=== PATIENT | female | born 1970 | race Hispanic/Latino ===

== ENCOUNTER 2018-10-29 08:55 | Day surgery (SDC) | payer OTHER ==
[2018-10-29] VITALS (7 sets, daily range): BP systolic 92–128; BP diastolic 47–78
[~2018-10-29] VITALS: Ht 162.6 cm; Wt 92.3 kg
[~2018-10-29 08:55] MED LIST: SODIUM CHLORIDE 0.9% 1000ML 1,000 ML IV ONE
[2018-10-29] MEDS ORDERED: PROPOFOL 10 MG/ML 20ML VIAL IV ONE (12:03)
== END 2018-10-29 13:17 | disposition home or self-care (01) ==
LOC: DAH 08:55 → ENDO 08:55
PROVIDERS: ATTEND Internal Medicine
DX: Z12.11 Encounter for screening for malignant neoplasm of colon (principal); K31.7 Polyp of stomach and duodenum; D12.3 Benign neoplasm of transverse colon; K63.5 Polyp of colon; K29.50 Unspecified chronic gastritis without bleeding; K64.0 First degree hemorrhoids; Z86.010 Personal history of colon polyps; Z90.710 Acquired absence of both cervix and uterus; Z68.34 Body mass index [BMI] 34.0-34.9, adult; K31.89 Other diseases of stomach and duodenum
CPT/HCPCS: 43239; 43251; 45380; A4606; J2704; J7030

== ENCOUNTER → 2018-11-29 | Outpatient (CLI) | payer OTHER ==
[2018-11-29 13:44] LABS: BILIRUBIN,TOTAL 0.5 mg/dL (0.2-1.0); CREATININE 0.9 mg/dL (0.5-1.5); POTASSIUM 3.7 mmol/L (3.5-5.1); TOTAL PROTEIN, SERUM 7.7 g/dL (6.0-8.3)
== END | disposition home or self-care (01) ==
LOC: LAB 12:29
PROVIDERS: ATTEND Internal Medicine Gastroenterology
DX: R01.1 Cardiac murmur, unspecified (principal)
CPT/HCPCS: 36415; 80053

== ENCOUNTER → 2018-12-03 | Outpatient (CLI) | payer OTHER | END | disposition home or self-care (01) | LOC: RAH 09:06 | PROVIDERS: ATTEND Internal Medicine Gastroenterology | DX: R10.11 Right upper quadrant pain (principal) | CPT/HCPCS: 76700; 78227; A9537 ==

== ENCOUNTER 2021-09-21 10:24 | Day surgery (SDC) | payer OTHER ==
[~2021-09-21] VITALS: Ht 157.5 cm; Wt 95.3 kg
[~2021-09-21 10:24] MED LIST changes: +MV-M1TAB20 PO; -SODIUM CHLORIDE 0.9% 1000ML 1,000 ML IV ONE; +[UNRECOGNIZED DRUG - CODE] PO
[2021-09-21 10:51] VITALS: BP 108/65
[2021-09-21] MEDS ORDERED: 0.9%NACL 1000ML 1,000 ML IV ONE (11:09)
[2021-09-21] MEDS ORDERED: FENTANYL CITRATE PF 50 MCG/1 ML 2ML VIAL ONE (12:29)
[2021-09-21] MEDS ORDERED: PROPOFOL 10 MG/ML 20ML VIAL IV ONE ×2 (12:57)
[2021-09-21] MEDS ORDERED: EPHEDRINE SULFATE 50 MG/ML AMPULE ONE (13:12)
[2021-09-21 13:15] VITALS: BP 101/61
[2021-09-21 13:20] VITALS: BP 103/63
[2021-09-21 13:25] VITALS: BP 111/70
== END 2021-09-21 13:40 | disposition home or self-care (01) ==
LOC: DAH 10:24 → ENDO 10:24
PROVIDERS: ATTEND Physician Assistant Medical
DX: R10.10 Upper abdominal pain, unspecified (principal); Z20.822 Contact with and (suspected) exposure to COVID-19; K21.9 Gastro-esophageal reflux disease without esophagitis; K59.04 Chronic idiopathic constipation; K31.89 Other diseases of stomach and duodenum; K31.7 Polyp of stomach and duodenum; E66.01 Morbid (severe) obesity due to excess calories; K82.8 Other specified diseases of gallbladder; Z90.710 Acquired absence of both cervix and uterus; Z90.49 Acquired absence of other specified parts of digestive tract; Z98.891 History of uterine scar from previous surgery; Z98.890 Other specified postprocedural states; Z86.010 Personal history of colon polyps; Z68.36 Body mass index [BMI] 36.0-36.9, adult
CPT/HCPCS: 43239; 43251; 45378; 87635; A4215; A4606; A4620; A4657; C9803; J2704 ×2; J3010; J3490; J7030

== ENCOUNTER 2023-09-12 06:46 | Day surgery (SDC) | payer OTHER ==
[2023-09-12] VITALS (14 sets, daily range): BP systolic 87–110; BP diastolic 50–76; PULSE 53–64; RESP 13–19
[~2023-09-12] VITALS: Ht 160 cm; Wt 70.3 kg
[~2023-09-12 06:46] MED LIST changes: -MV-M1TAB20 PO; +TIRZ10PE SQ; +VITAMIN D PO; -[UNRECOGNIZED DRUG - CODE] PO
[2023-09-12] MEDS: 0.9%NACL 1000ML 1,000 ML IV ONE (07:19)
[2023-09-12] MEDS ORDERED: PROPOFOL 10 MG/ML 20ML VIAL IV ONE ×2 (08:45)
== END 2023-09-12 10:35 | disposition home or self-care (01) ==
LOC: DAH 06:46
PROVIDERS: ATTEND Internal Medicine Gastroenterology
DX: R10.31 Right lower quadrant pain (principal); R10.10 Upper abdominal pain, unspecified; R12 Heartburn; K64.0 First degree hemorrhoids; K59.04 Chronic idiopathic constipation; R93.2 Abnormal findings on diagnostic imaging of liver and biliary tract; K29.50 Unspecified chronic gastritis without bleeding; K76.0 Fatty (change of) liver, not elsewhere classified; K21.9 Gastro-esophageal reflux disease without esophagitis; M06.9 Rheumatoid arthritis, unspecified; Z80.0 Family history of malignant neoplasm of digestive organs; Z79.84 Long term (current) use of oral hypoglycemic drugs; Z79.899 Other long term (current) drug therapy
CPT/HCPCS: 82948 ×2; 43239; 45378; J7030 ×2; J2704 ×2; A4620; A4215; A4223; A4657; A7002; A4222; A4221; A4663; A4606; J3490

== ENCOUNTER → 2023-09-21 | Outpatient (CLI) | payer OTHER | END | disposition home or self-care (01) | LOC: RAH 09:24 | PROVIDERS: ATTEND Internal Medicine | DX: K76.0 Fatty (change of) liver, not elsewhere classified (principal); R93.2 Abnormal findings on diagnostic imaging of liver and biliary tract; Z90.49 Acquired absence of other specified parts of digestive tract | CPT/HCPCS: 76700 ==